=== PATIENT | female | born 2000 | race Caucasian/White ===

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

== ENCOUNTER → 2022-04-24 | Outpatient (CLI) | payer BC, SELFPAY ==
[2022-04-28 16:16] LABS: Gonococcus By Nucleic Acid AMP Negative (Negative)
[2022-04-28 16:19] LABS: Chlamydia By Nucleic Acid AMP Positive (Negative)
== END | disposition home or self-care (01) ==
LOC: LABSPEC 13:10
PROVIDERS: PCP Nurse Practitioner Family; Visit Provider Obstetrics & Gynecology
DX: Z11.3 Encounter for screening for infections with a predominantly sexual mode of transmission (principal)
CPT/HCPCS: 87491; 87591

== ENCOUNTER 2023-07-01 15:00 | Outpatient (RCR) | payer BC, SELFPAY ==
--- NOTE | 2023-04-06 08:59 | HP.OTEVAL ---
Patient's Visit Information Visit Information Visit Information: ANU SNYDER is a 22 year old F, referred to Occupational Therapy by Dr. Pedro Zurita, DO, with a diagnosis of left hand crush injury. Date of Evaluation: 04/06/23 Occupational Therapist: Valeria Hicks, EVE/Mayank, CHT Subjective Subjective: This 22 year old female was seen for OT eval with dx of left hand crush injury. pt states she closed it in car door about 4 weeks ago- went to Dr.t De Leon ortho- due to limited ROM-numbness and pain. pt states they put her in ulnar gutter brace for about 3 weeks-pt states in brace hand feels better- but she has been taking it off at night in her sleep. pt states fingers are numb and she can not move them - reports numbness of LF/RF and palm of hand. 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 right handed pt to see Dr. Gee for pain mtg. ADLs Comments: pt is currently limited with all bilateral hand ADLs due to pain- lack of ROM and numbness- Pain left hand: Current Pain Intensity: 7 Pain Intensity Range: 7 and 8 ROM Forearm: right WNL left supination -40 Wrist: right 40/70 left 15/15 CMC: right WNL left 0 MP: right WNL left 30 IP: right WNL 10 ROM Comments: pt limited with digit ROM very guarded with any motion- Strength Business Analyst Project Manager: right 75# left NT Lateral Pinch: right 22# left NT Tripod Pinch: right 22# left NT Strength Comments: will test on later date Sensation Thumb: right 2.83 left 2.83 Index: right 2.83 left 2.83 Middle: right 2.83 left 2.83 Ring: right 2.83 left red line Little: right 2.83 left red line Sensation Comments: pt demo with sensitivity Quick DASH-Disab of Arm,Shoulder& Hand Quick DASH Score: 91.6650 Goals Goal:: pt will demo left forearm supination equal to unaffected right by d/c to return pt to her PLOF with ADLs pt will demo a increase in left wrist flex/ext by 25* to increase pts ind.with ADLs by d/c pt will demo the ability to form tight composite fist of left hand to increase ind with holding objects by d.c Goal:: pt will report no pain greater than 2/10 with use of left UE with ADLs and IADLs by janeth Goal:: pt will demo the ability to test with monofilaments at 3.61 indication of increase sensation to ulnar nerve distribution by janeth pt will demo understanding of visual compensatory michael. while she can not feel her left LF/RF to avoid injury by end of 2nd visit Rehabilitation General Assessment: pt demo numbness throughout ulnar nerve distribution, limited forearm, wrist and digit ROM , pt painful and swelling in hand- pt is limited with use of left hand with all ADls and IADL. pt would benefit from skilled OT services 2x week for 12 weeks to decrease pain- ed. pt on sensory re-ed, sensory desensitization- ROM and when pt gains appropriate ROM initiate strengthening. therapy will also ed. pt on visual compensatory michael. when using left hand until sensation improves. Today therapist ed. pt on gentle ROM of wrist/forearm and digits - adding PROM to her gemini. desensitization and edema control. pt demo understanding and agrees to POC. Anticipated Interventions Anticipated Interventions: A/AAROM/PROM, Strengthening, Edema Control, Desensitization, Sensory Retraining, Modalities, Orthoses, Joint Protection/Energy Conservation, Education re assistive Equipment, Education re Diagnosis and Home Program Visit Plan Frequency: 2-3x /Week Duration: 3 Months TEXT: Thank you for the opportunity to evaluate your patient. For Medicare and Medicare HMO plans, please review the plan of care and approve it. It will need to be FAXED BACK to us at [phone] for Medicare purposes. Please let me know if there are questions or concerns regarding this plan of care. Physician Signature: Date:
== END 2023-07-01 19:00 | disposition home or self-care (01) ==
LOC: OT 15:00
PROVIDERS: PCP Midwife; Referring Provider Student in an Organized Health Care Education/Training Program; Visit Provider Student in an Organized Health Care Education/Training Program
DX: S67.3 Crushing injury of wrist (principal); S60.222D Contusion of left hand, subsequent encounter; R20.2 Paresthesia of skin
CPT/HCPCS: 97035; 97110; 97140; 97166; 97530

== ENCOUNTER 2024-07-22 21:44 | Emergency (ER) | payer BC, SELFPAY ==
[2024-07-22 21:46] VITALS: BP 144/89; PULSE 118; RESP 16; TEMP 36.8; O2SAT 98; BMI 27.8
--- NOTE | 2024-07-22 22:07 | CT_ITS ---
PROCEDURE: ABDOMEN/PELVIS W IV CONT ONLY REASON FOR EXAM: Right lower quadrant pain TECHNIQUE: Abdomen and pelvis CT with intravenous contrast. Multiplanar reconstructions were performed. COMPARISON: None. FINDINGS: Lower chest: Unremarkable. Liver: Unremarkable. Biliary/gallbladder: Unremarkable. Pancreas: Unremarkable. Spleen: Unremarkable. Adrenal glands: Unremarkable. Kidneys: Unremarkable. Gastrointestinal/peritoneum: No acute abnormality.The appendix is unremarkable.There is trace free fluid in the right adnexal region. Vascular: Unremarkable. Lymph nodes: No enlarged lymph nodes by CT size criteria. Pelvic organs: An IUD is present. There is a cyst in the right adnexa measuring 2.6 cm. A 2nd cystic lesion in the right adnexa has internal fat density measuring 1.7 cm. There is a cyst in the left adnexa measuring 2.4 cm. Bladder: Unremarkable. Bones: Unremarkable. Soft tissues: Unremarkable. CT/Abdomen/Pelvis W IV Cont ONLY IMPRESSION: 1. Trace free fluid in the right adnexal region with an ovarian cyst measuring 2.6 cm and a dermoid cyst measuring 1.7 cm present. If there is clinical concern for possible ovarian torsion, pelvic ult rasound is recommended for further assessment. 2. IUD present. 3. Normal appendix. Reading Location: [facility]
[2024-07-22] MEDS: Ketorolac 30 MG/ML Syringe IV (22:20)
[2024-07-22] MEDS: 0.9% Normal Saline (1000mL) 1,000 ML 999 ML IV (22:20)
[2024-07-22] MEDS: Ondansetron 4 MG/2 ML Vial IV (22:20)
[2024-07-22 22:26] LABS: Mucous, Urine 0 SEEN /hpf (<or=2+); White Blood Cells 0 SEEN /hpf (0-5)
[2024-07-22 22:29] LABS: Absolute Lymphocyte Count 2.81 X10^3/uL (0.83-4.51); Basophil# 0.06 X10^3/uL; Basophil% 0.6 % (0-1); Eosinophil# 0.16 X10^3/uL; Eosinophils% 1.7 % (0-5); Hematocrit 40.5 % (37-47); Hemoglobin 14.3 g/dL (12.0-15.0); Lymphocyte # 2.81 X10^3/ul (0.83-4.51); Lymphocyte % 29.1 % (19-41); Mean Corp Hgb Conc 35.3 g/dL (32-36); Mean Corpuscular Hgb 28.9 pg (27.0-32.0); Mean Corpuscular Volume 81.8 fL (81-99); Monocyte# 0.62 X10^3/uL; Monocyte% 6.4 % (0-10); NRBC Flagged by Analyzer 0 % (0-5); Neutrophil # 5.99 X10^3/uL (2.7-7.7); Neutrophil % 61.9 % (47-70); Platelet Count 323 K/mm3 (150-450); RBC Distribution Width CV 11.6 % (11.6-14.6); RBC Distribution Width SD 34.3 fl (35.1-43.9); Red Blood Count 4.95 M/mm3 (4.2-5.4); White Blood Count 9.7 K/mm3 (4.4-11.0)
--- NOTE | 2024-07-22 22:29 | EX.ED.DYSGE1 ---
HPI History of Present Illness Chief Complaint: Abd Pain Informant: patient Narrative Narrative: Patient is a 23-year-old female who reports that she was diagnosed with a dermoid cyst in the right ovary roughly 6 weeks ago by her SOIL SCIENCE TECHNICAL OFFICER. She states she has been having intermittent pain associated with this but it has been tolerable. However this evening around 530 or 6 PM she noticed that the pain was more intense and not improving with time or ncpo-usl-vanevth medication. She states that she became nauseous after the pain started. She denies any fevers chills or injury. She denies any dysuria or diarrhea. However as the pain has not improved she presents for evaluation [facility] Medical History Encounter for screening for COVID-19 Home Medications ?Medication ?Instructions ?Recorded ?Last Taken ?Type oxycodone-acetaminophen 5 mg-325 1 tab PO Q6H PRN pain 3 days #12 07/23/24 Unknown Rx mg tablet (Percocet) tabs Allergy/AdvReac Type Severity Reaction Status Date / Time No Known Allergies Allergy Verified 07/22/24 21:46 Surgical History H/O removal of cyst Social History Smoking Status: Never smoker alcohol intake: never ROS ROS ED Constitutional Constitutional ED: Denies chills or fever(s) ENT ENT ED: Denies sore throat Cardiovascular Cardiovascular: Denies chest pain Respiratory/Chest Respiratory/Chest: Denies cough or dyspnea Gastrointestinal Gastrointestinal: Reports abdominal pain and nausea; Denies constipation, diarrhea or vomiting Genitourinary Genitourinary ED: Denies dysuria, hematuria or urinary frequency Musculoskeletal Musculoskeletal: Denies back pain Integumentary Denies rash Neurologic Neurologic: Denies headache(s) Hematologic/Lymphatic Hematologic/Lymphatic: Denies easy bleeding or easy bruising EXAM Physical Exam Const Vital Signs: 07/22/24 21:46 07/22/24 23:46 07/23/24 01:00 Temperature 98.2 F Temperature Source Oral Pulse Rate 118 H 84 84 Respiratory Rate 16 16 16 Blood Pressure 144/89 H 112/101 H 118/65 Blood Pressure Mean 107 104 82 Pulse Ox 98 99 96 Oxygen Delivery Method Room Air Room Air Room Air Positive well nourished and well developed General Appearance ED: well developed; Negative for pallor HEENT Reports moist mucous membranes HEENT Narrative: No tongue or lip swelling no oral lesions no airway edema or compromise No findings in the posterior pharynx to suggest infection Eyes PERRL and EOMs intact bilaterally General Eye ED: Negative for scleral icterus Neck supple Resp normal respiratory effort and clear to auscultation bilaterally Cardio regular rhythm Rate: tachycardic and other Other Details: Tachycardic rate with regular rhythm No murmurs rubs or gallop Radial and carotid pulses are equal and symmetric GI non-distended and no masses GI Narrative: Abdomen is soft and nondistended with mildly hyperactive bowel sounds. Patient has pain with palpation in the midepigastric right upper quadrant and right lower quadrant without voluntary guarding or rigidity. Negative rebound. There is mild increase in pain with heel strike. No pulsatile mass or peritoneal signs or fluid wave noted. Auscultation: hyperactive bowel sounds Palpation: soft Back/Spine no CVA tenderness Extremity normal to inspection Neuro oriented x3, CN's II-XII intact bilaterally and no sensory deficits noted Sensorium / Orientation: alert Motor Exam: strength 5/5 throughout Psych mental status grossly normal Skin no rashes or lesions noted and no wounds General Skin Exam: Negative for jaundice or pallor MDM MDM MDM Narrative Medical decision making narrative: Patient arrived to the ER mildly hypertensive and tachycardic but otherwise with stable vitals. She reported a known history of ovarian cyst but reports that the pain which has been mild and well-controlled with zrva-zrw-wankvpy medication increased earlier this evening and has not improved. On exam she had pain in the right upper quadrant as well as right lower quadrant with positive heel strike concerning for acute appendicitis. There is also concern for gallbladder dysfunction such as biliary colic or acute cholecystitis or pancreatitis. Patient could also have a UTI or pyelonephritis or potential ovarian torsion from her known cystic structure. Based on the diffuse right sided pain I did elect to perform a CT scan with basic laboratory studies. Labs revealed no clinically significant findings and CT scan showed the right sided ovarian cyst but otherwise no signs of obstruction or infection. The patient still having pain and CT confirming cystic structure there was concern for torsion so an ultrasound was performed. This confirmed the cystic structures but showed no signs of torsion. On repeat evaluation the patient is resting comfortably and vitals remained stable. Therefore at this time as there is no signs of acute infection obstruction or perforation or signs of ovarian torsion there is no need for further workup in the hospital and she is otherwise safe for discharge History & Record Review Discussion w/independent historian: Patient Lab Data Attestation: I reviewed the patient's lab results. Labs: Laboratory Results - last 24 hr 07/22/24 07/22/24 21:13 22:20 WBC 9.7 RBC 4.95 Hgb 14.3 Hct 40.5 MCV 81.8 MCH 28.9 MCHC 35.3 RDW Std Deviation 34.3 L RDW Coeff of [place] 11.6 Plt Count 323 MPV 10.0 Immature Gran % (Auto) 0.300 Neut % (Auto) 61.9 Lymph % (Auto) 29.1 [place] % (Auto) 6.4 Eos % (Auto) 1.7 Baso % (Auto) 0.6 Absolute Neuts (auto) 6.0 Absolute Lymphs (auto) 2.81 Nucleated RBC % 0 Sodium 138 Potassium 3.3 L Chloride 106 Carbon Dioxide 25.0 Anion Gap 7 BUN 16 Creatinine 0.79 Estim Creat Clear Calc 106.63 Est GFR (MDRD) Af Amer 118 Est GFR (MDRD) Non-Af 97 BUN/Creatinine Ratio 20.3 H Glucose 93 Lactic Acid 0.9 Calcium 8.9 Total Bilirubin 0.50 Direct Bilirubin 0.15 AST 15 ALT 17 Alkaline Phosphatase 68 Total Protein 7.2 Albumin 4.0 Globulin 3.2 Lipase 18 L Urine Color Yellow Urine Clarity Cloudy Urine pH 7.0 Ur Specific [place] 1.015 Urine Protein 15 H Urine Glucose (UA) Normal Urine Ketones 5 H Urine Occult Blood Negative Urine Nitrite Negative Urine Bilirubin Negative Urine Urobilinogen 1 H Ur Leukocyte Esterase Negative Urine RBC 0-5 SEEN Urine WBC 0 SEEN Ur Squamous Epith Cells 0-5 SEEN Amorphous Sediment 2+ Urine Bacteria RARE Urine Mucus 0 SEEN Urine Test Negative Radiography Diagnostic Testing: Clinical Impression(s) from Imaging Studies Abdomen/Pelvis CT 07/22/24 22:07 IMPRESSION: 1. Trace free fluid in the right adnexal region with an ovarian cyst measuring 2.6 cm and a dermoid cyst measuring 1.7 cm present. If there is clinical concern for possible ovarian torsion, pelvic ultrasound is recommended for further assessment. 2. IUD present. 3. Normal appendix. Reading Location: [facility] Transvaginal US 07/22/24 23:25 IMPRESSION: 1. No evidence of ovarian torsion. 2. Right ovarian cyst and right ovarian dermoid 3. Left ovarian cyst 4. IUD noted in fundus. Reading Location: [facility] Discharge Plan Triage Chief Complaint: Abd Pain ED Provider: Shemar Parson Dx/Rx/DC Orders Clinical Impression: Dermoid cyst Instructions: Ovarian Cysts Prescriptions: New oxycodone-acetaminophen [Percocet] 5-325 mg tablet 1 tab PO Q6H PRN (Reason: pain) 3 Days Qty: 12 0RF Primary Care Provider: Kassandra Roy Referrals: Kassandra Roy CNM [Primary Care Provider] - Activity Restrictions/Additional Instructions: Your workup today showed no signs of acute appendicitis kidney stone UTI/kidney infection or gallbladder disease. Ultrasound confirms you have 2 cyst on your right ovary but no signs of torsion/lack of blood flow. Continue to follow-up with your SOIL SCIENCE TECHNICAL OFFICER to discuss further treatment options for your cystic structures and return to the ER should you have any further concerns Print Language: Persian Disposition Disposition: Home, Self Care
[2024-07-22 22:32] LABS: Color, Urine Yellow (Yellow); Glucose, Dipstick Normal (Normal); Ketone-Dipstick 5 mg/dl (Negative); Leukocyte Esterase-Dipstick Negative /ul (Negative); Nitrite-Dipstick Negative (Negative); Occult Blood-Urine Negative /ul (Negative); Protein-Dipstick 15 mg/dl (Negative); Specific Gravity, Urine 1.015 (1.002-1.030); Urine Bilirubin Dipstick Negative (Negative); Urine Clarity Cloudy (Clear); Urine Urobilinogen 1 mg/dl (Normal)
[2024-07-22 22:35] LABS: Internal QC Validated? YES +Cl - CLEAR BKGD; Pregnancy, Urine Negative Negative
[2024-07-22 22:42] LABS: AST(SGOT) 15 U/L (15-37); Alanine Aminotransfer ALT/SGPT 17 U/L (13-56); Alkaline Phosphatase 68 U/L (45-117); Anion Gap 7 (5-15); BUN 16 mg/dL (7-18); BUN/Creat Ratio 20.3 RATIO (10-20); Bilirubin, Direct 0.15 mg/dL (0.00-0.30); Calcium,Total 8.9 mg/dL (8.5-10.1); Chloride 106 mmol/L (98-107); Creatinine, Serum 0.79 mg/dL (0.55-1.02); EST Glomerular Filtration Rate 97 mL/min (>60); Est Glom Filt Rate - Afr Amer 118 mL/min (>60); Estimated Creatinine Clearance 106.63 ml/min; Globulin 3.2 g/dL (2.2-4.2); Glucose 93 mg/dL (74-106); Lipase 18 U/L (73-393); Potassium 3.3 mmol/L (3.5-5.1); Protein, Total 7.2 g/dL (6.4-8.2); Sodium Level 138 mmol/L (136-145)
[2024-07-22 22:45] LABS: Lactic Acid 0.9 mmol/L (0.4-1.9)
[2024-07-22 22:57] LABS: Amorphous Sediment 2+; Bacteria RARE /hpf (None Seen); Red Blood Cells-Urine 0-5 SEEN /hpf (0-5); Squamous Epithelial Cells - UA 0-5 SEEN /hpf (5-10)
--- NOTE | 2024-07-22 23:25 | US_ITS ---
PROCEDURE: TRANSVAGINAL NON- REASON FOR EXAM: Question torsion TECHNIQUE: Transabdominal pelvic ultrasound COMPARISON: None. FINDINGS: Measurements: Uterus: 8.5 x 6.4 x 3.5 cm with a volume of 99.28 mL Endometrial Thickness: 4 mm Right Ovary: 4.1 x 4.8 x 4.0 with a volume of 20.88 mL. Left Ovary: 3.0 x 2.3 x 1.6 with a volume of 5.6 mL. Uterus: IUD is noted in the fundus Right ovary: Color flow is noted. It contains a hypoechoic focus measuring 2.7 x 2.2 x 1.7 cm. It also contains a hyper echoic focus measuring 1.5 x 1.5 x 1.6 cm. Left ovary: Color flow is noted. It contains a hypoechoic focus measuring 1.8 x 2.0 x 1.6 cm. No large pelvic mass identified. US/Transvaginal Non- IMPRESSION: 1. No evidence of ovarian torsion. 2. Right ovarian cyst and right ovarian dermoid 3. Left ovarian cyst 4. IUD noted in fundus. Reading Location: [facility]
[2024-07-22] MEDS: Morphine 4 MG/ML Syringe IV (23:38)
[2024-07-22 23:46] VITALS: BP 112/101; PULSE 84; RESP 16; O2SAT 99
[2024-07-23 01:00] VITALS: BP 118/65; PULSE 84; RESP 16; O2SAT 96
[2024-07-23 02:54] VITALS: BP 113/62; PULSE 82; RESP 18; TEMP 36.8; O2SAT 95
[2024-07-23] MEDS: oxyCODONE 5 MG Tablet 10 MG PO (02:57)
== END 2024-07-23 02:58 | disposition home or self-care (01) ==
PROVIDERS: Emergency Provider Emergency Medicine; PCP Midwife; Visit Provider Emergency Medicine
DX: D27.0 Benign neoplasm of right ovary (principal)
CPT/HCPCS: 74177; 76830; 80048; 80076; 81001; 81025; 83605; 83690; 85025; 96361; 96374; 96375; 96376; 99283; Q9967; A4216; J2405